=== PATIENT | female | born 1970 | race Caucasian/White ===

== ENCOUNTER 2016-10-27 11:35 | Emergency (ER) | payer OTHER ==
[2016-10-27 11:47] VITALS: BP 135/84; PULSE 63; TEMP 98.1; BMI 29.4
[2016-10-27] MEDS ORDERED: ACETAMINOPHEN 500 MG TABLET (FP) PO ONE (12:17)
[2016-10-27] MEDS ORDERED: ACETAMINOPHEN 500 MG TABLET (FP) ONE (12:23)
--- NOTE | 2016-10-27 12:24 | PDOC ---
History of Present Illness - General Chief Complaint: Cold Symptoms Stated Complaint: SORE THROAT Time Seen by Provider: 10/27/16 12:00 History Source: Patient Exam Limitations: No Limitations - History of Present Illness Initial Comments: 10/27/16 12:22 My chief complaint: Sore throat, generalized body aches and fever 3 days History of present illness: Patient is a 46 year old female with a history of hypertension and anemia here today complaining of generalized body aches with fever and sore throat 3 days. Patient reports that is uncomfortable to swallow. Patient denies any nasal congestion, cough, nausea or diarrhea. Ports that 2 of her children had strep throat 2 weeks ago. Timing/Duration: getting worse Severity: moderate Associated Symptoms: reports: fever/chills, other (sore throat, bodyaches) Past History - Past Medical History Allergies/Adverse Reactions: Allergies Allergy/AdvReac Type Severity Reaction Status Date / Time ibuprofen [From Motrin] Allergy Severe Itching Verified 10/27/16 11:39 chocolate flavor Allergy Mild Hives Verified 10/27/16 11:39 morphine Allergy Mild Itching Verified 10/27/16 11:39 naprosyn Allergy Intermediate Swelling Uncoded 10/27/16 11:39 Home Medications: Ambulatory Orders Amoxicillin - [Amoxicillin 500mg Capsule -] 1,000 mg PO ONCE #20 capsule MDD 1000 mg 10/27/16 Anemia: Yes Asthma: No Cancer: No Cardiac Disorders: No CVA: No COPD: No CHF: No Dementia: No Diabetes: Yes (gestational diabetic) Disorders: No HTN: Yes Hypercholesterolemia: No Liver Disease: No Seizures: No Thyroid Disease: No - Surgical History Abdominal Surgery: Yes Appendectomy: Yes Cardiac Surgery: No Cholecystectomy: No Lung Surgery: No Neurologic Surgery: No Orthopedic Surgery: No - Reproductive History (#): 7 Para: 3 Cervical CA: No Dysfunctional Uterine Bleeding: No Ectopic : No Endometrial CA: No Polycystic Ovaries: No Therapeutic (s) & number: Yes (2) Tubal Ligation: No Spontaneous : 2 - Psycho/Social/Smoking Cessation Hx Anxiety: No Suicidal Ideation: No Smoking Status: No Smoking History: Never smoked Have you smoked in the past 12 months: No Number of Cigarettes Smoked Daily: 0 Hx Alcohol Use: No Drug/Substance Use Hx: No Substance Use Type: None Hx Substance Use Treatment: No Review of Systems - Review of Systems Able to Perform ROS?: Yes Constitutional: Yes: Fever, Loss of Appetite, Other (generalized bodyaches) HEENTM: Yes: Throat Pain Respiratory: No: Symptoms reported Cardiac (ROS): No: Symptoms Reported ABD/GI: No: Symptoms Reported : No: Symptoms Reported Musculoskeletal: Yes: Other (generalized bodyaches) Neurological: No: Symptoms reported *Physical Exam - Vital Signs Last Vital Signs Temp Pulse Resp BP Pulse Ox 98.1 F 63 18 135/84 100 10/27/16 11:39 10/27/16 11:39 10/27/16 11:39 10/27/16 11:39 10/27/16 11:39 - Physical Exam General Appearance: Yes: Appropriately Dressed HEENT: positive: TMs Normal, Pharyngeal Erythema, Tonsillar Exudate (right ), Tonsillar Erythema (with no uvular deviation ). negative: Nasal Congestion, Rhinorrhea, Sinus Tenderness, Excessive drooling Neck: positive: Lymphadenopathy (R), Lymphadenopathy (L) Respiratory/Chest: positive: Lungs Clear, Normal Breath Sounds. negative: Chest Tender, Respiratory Distress Cardiovascular: positive: Regular Rhythm, Regular Rate, S1, S2 Integumentary: positive: Normal Color Neurologic: positive: Alert, Normal Response Medical Decision Making - Medical Decision Making 10/27/16 12:24 Patient is a 46 year old female with a history of hypertension and anemia here today complaining of generalized body aches with fever and sore throat 3 days. Patient reports that is uncomfortable to swallow. Patient denies any nasal congestion, cough, nausea or diarrhea. Ports that 2 of her children had strep throat 2 weeks ago. Tonsillitis exposure to strep throat from children Plan: Amoxicillin 1000 mg daily 10 days Patient instructed to throw out toothbrush at end of treatment. *DC/Admit/Observation/Transfer Diagnosis at time of Disposition: Tonsillitis with exudate, Exposure to Streptococcal pharyngitis - Discharge Dispostion Disposition: HOME Condition at time of disposition: Stable - Patient Instructions Additional Instructions: Drink a lot a fluids and rest Take acetaminophen as needed as directed by youth pastor for pain or fever or body aches Throw out toothbrush usp through treatment and at end of treatment get new one Return to emergency room if any difficulty swallowing or worsening symptoms Follow Up with your primary care provider next week Patient voiced understanding of discharge instructions and all questions were answered
== END 2016-10-27 12:29 | disposition home or self-care (01) ==
LOC: SUPCPDRO 11:35 → JERFT 11:35
DX: J03.90 Acute tonsillitis, unspecified (principal); I10 Essential (primary) hypertension
CPT/HCPCS: 99281-25